=== PATIENT | female | born 1975 | race Caucasian/White ===

== ENCOUNTER 2019-03-20 15:05 | Outpatient (CLI) | payer OTHER | END 2019-03-20 15:06 | disposition home or self-care (01) | LOC: SC 15:05 | PROVIDERS: ATTEND Internal Medicine Pulmonary Disease | DX: R06.83 Snoring (principal); R06.81 Apnea, not elsewhere classified; G47.8 Other sleep disorders; R41.89 Other symptoms and signs involving cognitive functions and awareness; G47.10 Hypersomnia, unspecified; E66.9 Obesity, unspecified; Z68.32 Body mass index [BMI] 32.0-32.9, adult | CPT/HCPCS: 99203; 99212 ==

== ENCOUNTER 2019-05-12 20:25 | Outpatient (CLI) | payer OTHER | END 2019-05-12 20:26 | disposition home or self-care (01) | LOC: SC 20:25 | PROVIDERS: ATTEND Internal Medicine Pulmonary Disease | DX: R06.83 Snoring (principal) | CPT/HCPCS: 95810 ==

== ENCOUNTER 2019-05-22 15:17 | Outpatient (CLI) | payer OTHER ==
--- NOTE | 2019-05-22 15:47 | CONSULTATION NOTE ---
Information from patient questionnaire entered by Haritha Boles. I have reviewed and concur with the information entered by Haritha Boles. This document represents the service I personally performed and the decisions made by me, Diana Carter MD, [facility]. - History of Present Illness HPI: Ms. William returned for follow up of the sleep study he had on 05/12/2019. The polysomnography showed that the patient had normal sleep efficiency. The sleep architecture was relatively normal as well considering the first night effect. Respiratory monitoring showed no significant sleep disordered breathing (AHI = 0.9) or hypoxia (sammy oxygen saturation of 92%). The patient slept adequately in supine position (supine AHI = 2.2; non-supine = 0.83). Snore was light to loud in intensity. There was no periodic leg movement of sleep. Cardiac rhythm was normal sinus rhythm without significant arrhythmia. No abnormal behavior (parasomnia) observed during the night. The patient was informed of these findings. I explained to her that the sleep study was normal. PE: No significant change on the physical exam today. IMPRESSION: 1. Hypersomnia, not explained by sleep disrupting conditions. Her sleep architecture was normal. From her sleep diary it appears that she may be a long sleeper requiring about 9 hours of sleep a night. The patient reports that all through her life she could sleep 9 10 hours a day if there is nothing to do. Her sleepiness during the day is mild. She does not fall asleep at work or while driving. Therefore, no further testing is warranted. PLAN: 1. Allow at least 9 hours for sleeping at night. 2. Return for follow up on as needed basis. This visit is time-based and I spent 15 minutes with the patient and more than 50% of the time was spent counseling the patient. Initial Mcrae Helena Sleepiness Scale score: 11 Current Mcrae Helena Sleepiness Scale score: 11 - Allergies/Medications Allergies and home medications reviewed: Yes - Review of Systems Review of systems same as previous: Yes
== END 2019-05-22 15:18 | disposition home or self-care (01) ==
LOC: SC 15:17
PROVIDERS: ATTEND Internal Medicine Pulmonary Disease
DX: R06.83 Snoring (principal); G47.10 Hypersomnia, unspecified
CPT/HCPCS: 99212; 99213

== ENCOUNTER 2019-12-21 09:59 | Outpatient (CLI) | payer OTHER ==
--- NOTE | 2019-12-21 15:37 | Mammography Report ---
Reason: ROUTINE MAMMO Procedure Date: 12/21/2019 Accession Number: [id number] / [id number] Procedure: [facility] - Screening Mammo Dig Bilat CPT Code: Final Report FULL RESULT: EXAM: Screening Mammo Dig Bilat DATE: 12/21/2019 10:24 AM CLINICAL HISTORY: Screening encounter. History of late childbearing. Family history of breast cancer in the mother at the age of 48. New baseline exam. TECHNIQUE: (B) - Bilateral CC and MLO views were obtained. COMPARISON: None PARENCHYMAL PATTERN: (D) - The breast(s) demonstrate(s) heterogeneously dense fibroglandular parenchyma. FINDINGS: There are no suspicious masses, calcifications, or areas of distortion. IMPRESSION: Negative examination. BI-RADS category 1. RECOMMENDATION: (ANNUAL) - Recommend routine annual screening mammography. BI-RADS CATEGORY: (1) - Negative. STANDARD QUALIFYING STATEMENTS: 1. This examination was not reviewed with the aid of Computer-Aided Detection (CAD). 2. A negative or benign imaging report should not preclude biopsy if clinically suspicious findings are present. 3. Dense breasts may obscure an underlying neoplasm. 4. This examination was reviewed without the aid of 3D breast imaging (tomosynthesis).
== END 2019-12-21 10:00 | disposition home or self-care (01) ==
LOC: DI.N 09:59
PROVIDERS: ATTEND Obstetrics & Gynecology
DX: Z12.31 Encounter for screening mammogram for malignant neoplasm of breast (principal); Z80.3 Family history of malignant neoplasm of breast
CPT/HCPCS: 77067